=== PATIENT | male | born 1955 | race Caucasian/White ===

== ENCOUNTER 2018-12-01 17:41 | Emergency (ER) | payer BC ==
[~2018-12-01] VITALS: Ht 182.9 cm; Wt 86.2 kg
[~2018-12-01 17:41] MED LIST: B/P MED; CHOLESTROL; HYDR-1231 PO
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
[2018-12-01] MEDS ORDERED: HYDR25TA4 (18:03)
[2018-12-01] MEDS ORDERED: EPLE50TA3 (18:03)
[2018-12-01] MEDS ORDERED: ATOR80TA76 (18:03)
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
[2018-12-01 18:36] LABS: BASOPHILS # (AUTO) 0.1 10^3/uL (0.0-0.1); BASOPHILS % (AUTO) 1 % (0-10); EOSINOPHILS # (AUTO) 0.6 10^3/uL (0.0-0.3); EOSINOPHILS % (AUTO) 5 % (0-10); HEMATOCRIT 48 % (40-54); HEMOGLOBIN 16.4 G/DL (13.3-17.7); LYMPHOCYTES % (AUTO) 37 % (12-44); MEAN CORPUSCULAR HEMOGLOBIN 28 PG (25-34); MEAN CORPUSCULAR HGB CONC 34 G/DL (32-36); MEAN CORPUSCULAR VOLUME 82 FL (80-99); MEAN PLATELET VOLUME 10.6 FL (7.4-10.4); MONOCYTES # (AUTO) 1.4 X 10^3 (0.0-1.0); MONOCYTES % (AUTO) 10 % (0-12); NEUTROPHILS # (AUTO) 6.5 X 10^3 (1.8-7.8); NEUTROPHILS % (AUTO) 48 % (42-75); PLATELET COUNT 382 10^3/uL (130-400); RED CELL DISTRIBUTION WIDTH 14.8 % (10.0-14.5); WHITE BLOOD COUNT 13.6 10^3/uL (4.3-11.0)
--- NOTE | 2018-12-01 18:43 | Diagnostic Imaging Report ---
INDICATION: Chest crackles. FINDINGS: Frontal view of the chest demonstrates the lungs to be clear. The heart and vascularity are normal. There are no pleural effusions. IMPRESSION: Normal portable chest. Dictated by: Dictated on workstation # [id number]
[2018-12-01 18:55] LABS: ALANINE AMINOTRANSFERASE 23 U/L (0-55); ALBUMIN 3.9 GM/DL (3.2-4.5); ALKALINE PHOSPHATASE 118 U/L (40-136); BILIRUBIN,TOTAL 0.7 MG/DL (0.1-1.0); BUN/CREATININE RATIO 11; CALCIUM 10.4 MG/DL (8.5-10.1); CARBON DIOXIDE 26 MMOL/L (21-32); CHLORIDE 97 MMOL/L (98-107); CREATININE SERUM 1.17 MG/DL (0.60-1.30); GFR ESTIMATED > 60; GLUCOSE 186 MG/DL (70-105); POTASSIUM 2.8 MMOL/L (3.6-5.0); SODIUM 137 MMOL/L (135-145); TOTAL PROTEIN 7.3 GM/DL (6.4-8.2)
[2018-12-01 19:17] LABS: FREE T4 (FREE THYROXINE) 0.88 NG/DL (0.70-1.48)
[2018-12-01] MEDS ORDERED: KCL 10 MEQ TAB (MICRO K) PO ONE (19:30)
[2018-12-01] MEDS ORDERED: amLODIPine 5 MG (NORVASC) TAB PO ONE ×2 (19:30→23:00)
[2018-12-01] MEDS ORDERED: NS IV 1000 ML 1,000 ML IV ONE (19:30)
[2018-12-01] MEDS ORDERED: POTASSIUM CL 10MEQ/50ML IVPB 50 ML IV ONE ×2 (19:30)
[2018-12-01 20:32] LABS: BILIRUBIN,URINE NEGATIVE (NEGATIVE); CLARITY,URINE CLEAR; COLOR,URINE YELLOW; GLUCOSE, URINE (UA) NEGATIVE (NEGATIVE); KETONES,URINE NEGATIVE (NEGATIVE); LEUKOCYTE ESTERASE ,URINE NEGATIVE (NEGATIVE); NITRITE,URINE NEGATIVE (NEGATIVE); PH,URINE 6 (5-9); PROTEIN,URINE NEGATIVE (NEGATIVE); UROBILINOGEN,URINE 4 MG/DL (NORMAL)
[2018-12-01 20:43] LABS: BACTERIA,URINE NEGATIVE /HPF; SQUAMOUS EPITHELIAL CELL,UR RARE /HPF; WBC,URINE RARE /HPF
[2018-12-01] MEDS ORDERED: AMLO5TAB9 PO (21:07)
[2018-12-01] MEDS ORDERED: POTA10CA43 PO (21:07)
--- NOTE | 2018-12-01 23:36 | NUR ---
EMS contacted for transport to [place] Rm 221
[2018-12-02 00:19] VITALS: BP 142/121
== END 2018-12-02 00:26 | disposition short-term general hospital (02) ==
LOC: EDUNIT# 17:41 → ER 17:43
DX: I10 Essential (primary) hypertension (principal); E87.6 Hypokalemia; D72.829 Elevated white blood cell count, unspecified; R53.83 Other fatigue; Z82.49 Family history of ischemic heart disease and other diseases of the circulatory system
CPT/HCPCS: 36415; 71045; 80053; 81000; 83735; 83880; 84439; 84443; 85025; 93005; 96365

== ENCOUNTER → 2019-01-10 | Outpatient (CLI) | payer BC ==
[~2019-01-10] MED LIST changes: +AMLO5TAB9 PO; +ATOR80TA76; +EPLE50TA3; +HYDR25TA4; +POTA10CA43 PO
--- NOTE | 2019-01-10 12:53 | Diagnostic Imaging Report ---
PROCEDURE: CT abdomen without contrast. TECHNIQUE: Multiple contiguous axial images were obtained through the abdomen without the use of intravenous contrast. Auto Exposure Controls were utilized during the CT exam to meet ALARA standards for radiation dose reduction. INDICATION: Hypertension. FINDINGS: The lung bases are clear. The heart size is normal. The liver is normal in size without focal lesions. There is no biliary ductal dilatation. There is cholelithiasis. 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 There is a residual splenule. There is a fat-containing left adrenal mass measuring 4.9 cm. There is a 2 mm nonobstructing left renal calculus. The aorta is nonaneurysmal. The bowel gas pattern is nonspecific. There is no free air. There is no ascites. There are no inflammatory changes. 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 Cholelithiasis. No other acute abnormality in the abdomen. Dictated by: Dictated on workstation # [id number]
== END ==
LOC: RAD 11:10
PROVIDERS: ATTEND Internal Medicine
DX: I10 Essential (primary) hypertension (principal); E26.9 Hyperaldosteronism, unspecified
CPT/HCPCS: 74150

== ENCOUNTER 2019-07-01 21:44 | Emergency (ER) | payer MEDICARE ==
[~2019-07-01] VITALS: Ht 180 cm; Wt 84.9 kg
[2019-07-01] MEDS ORDERED: LACTATED RINGERS 1,000 ML IV ONE (21:48)
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
[2019-07-01] MEDS ORDERED: IBUPROFEN 800 MG (MOTRIN) TAB PO ONE (22:00)
[2019-07-01] MEDS ORDERED: ACETAMINOPHEN 500 MG TAB (TYLENOL) PO PRN (22:00)
[2019-07-01] MEDS ORDERED: OSELTAMIVIR 75 MG (TAMIFLU) CAPSULE PO ONE (22:45)
[2019-07-01 22:50] LABS: BASOPHILS % (AUTO) 0 % (0-10); EOSINOPHILS % (AUTO) 0 % (0-10); HEMATOCRIT 54 % (40-54); HEMOGLOBIN 18.3 G/DL (13.3-17.7); LYMPHOCYTES # (AUTO) 1.4 X 10^3 (1.0-4.0); LYMPHOCYTES % (AUTO) 14 % (12-44); MEAN CORPUSCULAR HEMOGLOBIN 29 PG (25-34); MEAN CORPUSCULAR HGB CONC 34 G/DL (32-36); MEAN CORPUSCULAR VOLUME 85 FL (80-99); MONOCYTES % (AUTO) 20 % (0-12); NEUTROPHILS # (AUTO) 6.7 X 10^3 (1.8-7.8); NEUTROPHILS % (AUTO) 66 % (42-75); PLATELET COUNT 284 10^3/uL (130-400); RED CELL DISTRIBUTION WIDTH 15.6 % (10.0-14.5); WHITE BLOOD COUNT 10.2 10^3/uL (4.3-11.0)
--- NOTE | 2019-07-01 23:02 | NUR ---
Report received from GEOVANNA Corona to assume care.
[2019-07-01 23:04] LABS: ALANINE AMINOTRANSFERASE 44 U/L (0-55); ALKALINE PHOSPHATASE 139 U/L (40-136); BILIRUBIN,TOTAL 0.5 MG/DL (0.1-1.0); BUN/CREATININE RATIO 16; CALCIUM 10.1 MG/DL (8.5-10.1); CARBON DIOXIDE 18 MMOL/L (21-32); CHLORIDE 101 MMOL/L (98-107); CREATININE SERUM 1.24 MG/DL (0.60-1.30); GFR ESTIMATED 59; GLUCOSE 98 MG/DL (70-105); POTASSIUM 4.2 MMOL/L (3.6-5.0); SODIUM 132 MMOL/L (135-145); TOTAL PROTEIN 8.3 GM/DL (6.4-8.2)
[2019-07-01 23:06] LABS: EOSINOPHILS % (MANUAL) 1 %; LYMPHOCYTES % (MANUAL) 11 %; MONOCYTES % (MANUAL) 10 %; NEUTROPHILS % (MANUAL) 78 %; RBC MORPH NORMAL
[2019-07-01 23:39] LABS: INR 1.1 (0.8-1.4)
[2019-07-02] MEDS ORDERED: D5 1/2 NS 1000 ML IV SOLUTION 1,000 ML IV ONE (00:45)
[2019-07-02 00:50] LABS: BILIRUBIN,URINE NEGATIVE (NEGATIVE); CLARITY,URINE CLEAR; COLOR,URINE YELLOW; GLUCOSE, URINE (UA) NEGATIVE (NEGATIVE); KETONES,URINE TRACE (NEGATIVE); LEUKOCYTE ESTERASE ,URINE NEGATIVE (NEGATIVE); NITRITE,URINE NEGATIVE (NEGATIVE); PH,URINE 5.5 (5-9); PROTEIN,URINE TRACE (NEGATIVE)
[2019-07-02 01:08] LABS: BACTERIA,URINE TRACE /HPF; SQUAMOUS EPITHELIAL CELL,UR RARE /HPF
[2019-07-02 01:52] VITALS: BP 159/99
--- NOTE | 2019-07-02 06:08 | Diagnostic Imaging Report ---
INDICATION: Cough and congestion. Comparison with 12/01/2018. FINDINGS: Portable chest shows the lungs to be well-aerated and clear. No air trapping. No infiltrates. Heart is not enlarged. No pulmonary edema or hilar adenopathy. No pneumothorax or pleural effusion. No bony abnormalities. IMPRESSION: Normal portable chest. Dictated by: Dictated on workstation # [id number]
== END 2019-07-02 01:55 | disposition home or self-care (01) ==
LOC: ER 21:44 → EDUNIT# 21:44 → ER 07-02 01:55
DX: J10.1 Influenza due to other identified influenza virus with other respiratory manifestations (principal); E86.0 Dehydration; I10 Essential (primary) hypertension; Z91.14 Patient's other noncompliance with medication regimen
CPT/HCPCS: 36415; 71045; 80053; 81000; 83605; 84484; 85007; 85027; 85610; 85730; 87040; 87088; 87804; 93005; 93041

== ENCOUNTER → 2021-01-03 | Outpatient (CLI) | payer MEDICARE ==
[~2021-01-03] MED LIST changes: +AMLO-250 PO; -AMLO5TAB9 PO
--- NOTE | 2021-01-03 14:23 | Diagnostic Imaging Report ---
INDICATION: Nephrolithiasis. EXAMINATION: KUB at 2:06 PM. FINDINGS: There appear to be at least 4 calculi in the gallbladder. There are no calculi seen in either kidney. The bowel gas pattern is normal. There is splenic artery calcification. IMPRESSION: Cholecystolithiasis. Dictated by: Dictated on workstation # [id number]
== END ==
LOC: RAD 13:40
PROVIDERS: ATTEND Urology
DX: N20.2 Calculus of kidney with calculus of ureter (principal); K80.20 Calculus of gallbladder without cholecystitis without obstruction
CPT/HCPCS: 74018

== ENCOUNTER 2022-10-19 19:19 | Observation (INO) | payer MEDICARE ==
[~2022-10-19] VITALS: Ht 180 cm; Wt 79.9 kg
[~2022-10-19 19:19] MED LIST changes: -POTA10CA43 PO; +POTA10CA44 PO
[2022-10-19 19:55] LABS: BASOPHILS # (AUTO) 0.1 10^3/uL (0.0-0.1); BASOPHILS % (AUTO) 1 % (0-10); EOSINOPHILS # (AUTO) 0.2 10^3/uL (0.0-0.3); EOSINOPHILS % (AUTO) 1 % (0-10); HEMATOCRIT 51 % (40-54); HEMOGLOBIN 17.2 g/dL (13.3-17.7); LYMPHOCYTES # (AUTO) 1.4 10^3/uL (1.0-4.0); LYMPHOCYTES % (AUTO) 7 % (12-44); MEAN CORPUSCULAR HEMOGLOBIN 28 pg (25-34); MEAN CORPUSCULAR HGB CONC 34 g/dL (32-36); MEAN CORPUSCULAR VOLUME 83 fL (80-99); MEAN PLATELET VOLUME 10.1 fL (9.0-12.2); MONOCYTES % (AUTO) 5 % (0-12); NEUTROPHILS % (AUTO) 86 % (42-75); PLATELET COUNT 398 10^3/uL (130-400); WHITE BLOOD COUNT 19.7 10^3/uL (4.3-11.0)
[2022-10-19 20:01] LABS: BILIRUBIN,URINE NEGATIVE (NEGATIVE); CLARITY,URINE CLEAR; COLOR,URINE YELLOW; GLUCOSE, URINE (UA) 3+ (NEGATIVE); KETONES,URINE 1+ (NEGATIVE); LEUKOCYTE ESTERASE ,URINE NEGATIVE (NEGATIVE); NITRITE,URINE NEGATIVE (NEGATIVE); PROTEIN,URINE TRACE (NEGATIVE)
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
[2022-10-19 20:15] LABS: EOSINOPHILS % (MANUAL) 1 %; LYMPHOCYTES % (MANUAL) 8 %; MONOCYTES % (MANUAL) 3 %; NEUTROPHILS % (MANUAL) 84 %; PLATELET ESTIMATE OCC LARGE PLT; POIKILOCYTOSIS SLIGHT; REACTIVE LYMPHOCYTES 4 %
[2022-10-19] MEDS ORDERED: NS IV 1000 ML 1,000 ML IV SCH ×2 (20:15→21:00)
[2022-10-19 20:17] LABS: ALBUMIN 4.3 GM/DL (3.2-4.5); ANISOCYTOSIS MODERATE; POTASSIUM 3.6 MMOL/L (3.6-5.0)
[2022-10-19 20:18] LABS: CALCIUM 10.3 MG/DL (8.5-10.1)
[2022-10-19 20:21] LABS: BILIRUBIN,TOTAL 1.5 MG/DL (0.1-1.0)
[2022-10-19 20:23] LABS: CREATININE SERUM 1.07 MG/DL (0.60-1.30)
[2022-10-19 20:23] LABS: AMORPHOUS SEDIMENT,UR RARE AMOR URATES /LPF; BACTERIA,URINE NEGATIVE /HPF; SQUAMOUS EPITHELIAL CELL,UR RARE /HPF; WBC,URINE 0-2 /HPF
[2022-10-19] MEDS ORDERED: NS 100 ML (IVPB) BAG IV ONE (20:45)
[2022-10-19] MEDS ORDERED: HOLD METFORMIN - RECEIVED CONTRAST 20 ML VIAL IV SCH (20:45)
[2022-10-19] MEDS ORDERED: IOHEXOL 350 MG/ML 100 ML (OMNIPAQUE 350) VIAL IV ONE (20:45)
--- NOTE | 2022-10-19 21:30 | Diagnostic Imaging Report ---
PROCEDURE: CT abdomen and pelvis with contrast, rule out appendicitis. TECHNIQUE: Multiple contiguous axial images were obtained through the abdomen and pelvis after the administration of intravenous contrast. All CT scans use one or more of the following dose optimizing techniques: automated exposure control, MA and/or KvP adjustment based on patient size and exam type or iterative reconstruction. INDICATION: Right lower quadrant abdominal pain. Fever. Weakness. COMPARISON: 01/10/2019. FINDINGS: Included portions of lung bases show mild dependent atelectasis CT ABDOMEN: Normal appendix is identified. There is however focal segment of distal ileum within the right lower abdominal quadrant that shows thickened hyperenhancement to the wall. There is also moderate stranding of the surrounding mesentery. This does extend towards the sigmoid colon. Wall the sigmoid colon appears slightly thickened as well, although this portion of the sigmoid colon is nondilated. Multiple diverticula are also identified involving this portion of the sigmoid colon. Remainder of the colon is unremarkable on CT. Small bowel is nondilated. There is a small amount of free fluid within the lower pelvis and right lower abdominal quadrant. There is no definite free air. There is no loculated air-fluid collection to suggest abscess. Mixed fat and soft tissue density mass of the left adrenal gland is identified and measures 5.8 x 3.5 cm. This is in comparison to 5.3 x 3.4 cm previously and is suspicious for myolipoma. Similar smaller appearing lesion is also seen more inferiorly involving the lateral genu and is also suspicious for myolipoma. There is also abnormal nodular more dense appearance of the right adrenal gland. This is nonspecific, but stable. Multiple gallstones are present. There is no gallbladder wall thickening or pericholecystic free fluid. The liver, kidneys and pancreas have a normal CT appearance. Multiple splenules are noted within the left upper abdominal quadrant and may be on the basis of previous trauma and splenectomy. A few small retroperitoneal lymph nodes are noted. No abnormal mesenteric adenopathy is seen. Osseous structures show no acute abnormality. CT PELVIS: Urinary bladder is unopacified. No calculi are seen within urinary bladder. A few prominent perisigmoidal lymph nodes are also noted mammography. There is no loculated fluid collection or free air. Osseous structures show no acute abnormality. IMPRESSION: 1. Prominent abnormal inflammatory versus infectious process in the right lower abdominal quadrant. This appears to be epicentered around a loop of distal ileum and is concerning for inflammatory bowel disease, such as Crohn's disease. Note is made that this does extend towards multiple diverticula of the sigmoid colon with associated colonic wall thickening. This however may be reactive. Sigmoidal diverticulitis as the primary cause of these findings is felt to be less likely, but is not entirely excluded. Correlation with colonoscopy is advised, as sigmoidal mass may present in a similar manner. 2. Small amount of free fluid within the pelvis, but no loculated air-fluid collection or free air. 3. Multiple adrenal lesions, as described above. 4. Cholelithiasis. Dictated by: Dictated on workstation # [id number]
[2022-10-19] MEDS ORDERED: metroNIDAZOLE 500MG/100ML IVPB 100 ML IV ONE (22:00)
[2022-10-19] MEDS ORDERED: CIPROFLOXACIN IV 400MG/200ML 200 ML IV ONE (22:00)
[2022-10-19] MEDS ORDERED: predniSONE 20 MG TAB PO ONE (22:00)
[2022-10-19] MEDS ORDERED: PIPERACILLIN SODIUM/TAZOBACTAM 4.5 GM in NS (IVPB) 100 ML IV ONE (22:15)
[2022-10-19] MEDS ORDERED: morphine INJ 4 MG/ML 1 ML (VIAL/SYRINGE) IV PRN (23:15)
[2022-10-19] MEDS ORDERED: ACETAMINOPHEN 500 MG TAB (TYLENOL) PO PRN (23:15)
[2022-10-19] MEDS ORDERED: ONDANSETRON 4 MG/2 ML (SDV) Z0FRAN IV PRN (23:15)
[2022-10-19] MEDS: NS IV 1000 ML 1,000 ML IV SCH (23:26)
[2022-10-20] VITALS: BP 147/80
[2022-10-20] MEDS ORDERED: ATOR40TA70 PO ×2 (00:02→08:42)
[2022-10-20] MEDS ORDERED: CARV3.122 PO ×2 (00:03→08:42)
[2022-10-20] MEDS ORDERED: CLOP-31 PO (00:03)
[2022-10-20] MEDS ORDERED: EZET10TA49 PO ×2 (00:04→08:42)
[2022-10-20] MEDS ORDERED: DAPA10TA PO ×2 (00:07→08:42)
[2022-10-20 03:25] VITALS: BP 118/77
[2022-10-20] MEDS ORDERED: PIPERACILLIN SODIUM/TAZOBACTAM 4.5 GM in NS (IVPB) 100 ML IV SCH (04:00)
[2022-10-20] MEDS ORDERED: CALCIUM CARBONATE 500 MG (TUMS) TAB.CHEW PO PRN (04:15)
[2022-10-20] MEDS ORDERED: HYDROcodone/APAP 5 MG/325 MG (LORTAB) TAB PO PRN (04:15)
[2022-10-20] MEDS ORDERED: diphenhydrAMINE 25 MG TAB (BENADRYL) PO PRN (04:15)
[2022-10-20] MEDS ORDERED: MELATONIN 3 MG TABLET PO PRN (04:15)
[2022-10-20] MEDS ORDERED: DOCUSATE SODIUM 100 MG (COLACE) CAP PO PRN (04:15)
[2022-10-20] MEDS ORDERED: ALPRAZolam 0.25 MG (XANAX) TAB PO PRN (04:15)
[2022-10-20 05:55] LABS: BASOPHILS % (AUTO) 0 % (0-10); EOSINOPHILS % (AUTO) 0 % (0-10); HEMATOCRIT 46 % (40-54); HEMOGLOBIN 15.3 g/dL (13.3-17.7); LYMPHOCYTES # (AUTO) 0.9 10^3/uL (1.0-4.0); LYMPHOCYTES % (AUTO) 7 % (12-44); MEAN CORPUSCULAR HEMOGLOBIN 28 pg (25-34); MEAN CORPUSCULAR HGB CONC 33 g/dL (32-36); MEAN CORPUSCULAR VOLUME 84 fL (80-99); MEAN PLATELET VOLUME 10.5 fL (9.0-12.2); MONOCYTES # (AUTO) 0.3 10^3/uL (0.0-1.0); MONOCYTES % (AUTO) 2 % (0-12); NEUTROPHILS # (AUTO) 12.9 10^3/uL (1.8-7.8); NEUTROPHILS % (AUTO) 91 % (42-75); PLATELET COUNT 356 10^3/uL (130-400); WHITE BLOOD COUNT 14.3 10^3/uL (4.3-11.0)
[2022-10-20 05:58] LABS: POTASSIUM 3.8 MMOL/L (3.6-5.0)
[2022-10-20 06:00] LABS: CALCIUM 9.4 MG/DL (8.5-10.1)
[2022-10-20 06:04] LABS: CREATININE SERUM 1.01 MG/DL (0.60-1.30)
[2022-10-20] MEDS ORDERED: predniSONE 20 MG TAB PO SCH (07:00)
[2022-10-20 08:14] VITALS: BP 124/75
[2022-10-20] MEDS ORDERED: AMLO-250 PO (08:42)
[2022-10-20] MEDS ORDERED: EPLE50TA3 PO (08:43)
[2022-10-20] MEDS ORDERED: LOSA50TA63 PO ×2 (08:43)
[2022-10-20] MEDS ORDERED: CLOP75TA28 PO (08:43)
[2022-10-20] MEDS ORDERED: FAMOTIDINE 20 MG (PEPCID) TABLET PO SCH (09:00)
[2022-10-20] MEDS ORDERED: polyethylene glycoL POWDER 17 GM (MIRALAX) PACK PO SCH (09:00)
[2022-10-20] MEDS ORDERED: ENOXAPARIN 40 MG/0.4 ML (LOVENOX) SYR SC SCH (09:00)
[2022-10-20] MEDS ORDERED: SENNA W/DOCUSATE (SENOKOT S) TABLET PO SCH (09:00)
[2022-10-20] MEDS: NS IV 1000 ML 1,000 ML IV SCH (10:12)
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
[2022-10-20] MEDS ORDERED: METR-145 PO ×2 (12:20)
[2022-10-20] MEDS ORDERED: CIPR500T5 PO ×2 (12:20)
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
[2022-10-20 13:26] VITALS: BP 124/75
== END 2022-10-20 12:45 | disposition home or self-care (01) ==
LOC: EDUNIT# 19:19 → ER 19:20 → UNDOADMIN 22:10 → 4TH 22:10 → UNDODISIN 10-20 12:45
PROVIDERS: ADMIT Internal Medicine; ATTEND Internal Medicine
DX: K57.32 Diverticulitis of large intestine without perforation or abscess without bleeding (principal); K50.00 Crohn's disease of small intestine without complications; K52.9 Noninfective gastroenteritis and colitis, unspecified; K80.10 Calculus of gallbladder with chronic cholecystitis without obstruction; R65.10 Systemic inflammatory response syndrome (SIRS) of non-infectious origin without acute organ dysfunction
CPT/HCPCS: 74177; 80048; 80053; 81000; 83605; 85007; 85025; 85027; 86141; 87040; 96361 ×3; 96365; 96372; 96376; 99284; G0378; 36415

== ENCOUNTER → 2022-10-30 | Outpatient (CLI) | payer MEDICARE ==
[~2022-10-30] MED LIST changes: +ATOR40TA70 PO; +CARV3.122 PO; +CIPR500T5 PO; +CLOP-31 PO; +CLOP75TA28 PO; +DAPA10TA PO; +EPLE50TA3 PO; +EZET10TA49 PO; +LOSA50TA63 PO; +METR-145 PO; +REGADENOSON 0.4 MG/5 ML SYR (LEXISCAN) IV ONE
[2022-10-30] MEDS: CATHETER FLUSH 10 ML SYR IVP PRN ×2 (07:28→09:03)
[2022-10-30 08:58] VITALS: BP 152/98
--- NOTE | 2022-10-30 11:32 | Cardiology Stress Test Report ---
Stress Test Report Date of Procedure/Referring: Date of Procedure: Oct 30, 2022 PCP Vito Kramer DO Admitting Physician Admitting Physician: Attending Physician: Tati Lawson MD Indications: CP Baseline Heart Rate: 61 Baseline Blood Pressure: Blood Pressure Systolic: 152 Blood Pressure Diastolic: 98 Baseline Vitals Vital Signs Date Time Temp Pulse Resp B/P (MAP) Pulse Ox O2 Delivery O2 Flow Rate FiO2 10/30/22 08:58 20 64 152/98 (116) 96 Room Air Baseline EKG: Baseline EKG: NSR Summary After explaining the procedure to the patient, he signed a consent and then brought to the stress nuclear laboratory. Patient received 0.4 mg Lexiscan for stress test, ECG, heart rate and blood pressure were monitored continuously. Resting and stress dose of radio tracer were injected, imaging was acquired and reviewed in short axis, horizontal long axis and vertical long axis views. TID: 0.99 SSS: 6 SDS: 4 EF: 31 Patient tolerated Lexiscan well Intermittent left bundle branch block induced by Lexiscan injection Reversible ischemia involving the mid to apical inferior wall inferolateral wall and anterior lateral wall fixed defect at the apex Dilated left ventricle with diffuse left ventricular hypokinesia ejection fraction 31% Copy Copies To 1: VITO KRAMER BASHAR J MD Oct 30, 2022 11:32
== END ==
LOC: CARD 06:56
PROVIDERS: ATTEND Internal Medicine Cardiovascular Disease
DX: I25.10 Atherosclerotic heart disease of native coronary artery without angina pectoris (principal); I10 Essential (primary) hypertension
CPT/HCPCS: 78452; 93017; A9502

== ENCOUNTER 2022-11-08 13:00 | Day surgery (SDC) | payer MEDICARE ==
[2022-11-08] VITALS (9 sets, daily range): BP systolic 120–163; BP diastolic 79–99
[~2022-11-08] VITALS: Ht 180.3 cm; Wt 78.5 kg
--- NOTE | 2022-11-08 11:16 | Diagnostic Imaging Report ---
INDICATION: Pre-heart catheterization evaluation, abnormal stress, cad,chf,cva,htn,hlp. TECHNIQUE: Single view chest 11:08 AM. CORRELATION STUDY: 07/01/2019 FINDINGS: Heart size and mediastinum are prominent but generally stable. Vasculature within normal limits. The lungs are clear with no consolidating infiltrate. There is no significant effusion or pneumothorax. Old healed left posterior lateral rib fracture deformities. IMPRESSION: 1. Generally stable chest demonstrates no acute abnormality. Dictated by: Dictated on workstation # [id number]
[2022-11-08 11:37] LABS: BILIRUBIN,URINE NEGATIVE (NEGATIVE); CLARITY,URINE CLEAR; COLOR,URINE YELLOW; GLUCOSE, URINE (UA) 3+ (NEGATIVE); KETONES,URINE NEGATIVE (NEGATIVE); LEUKOCYTE ESTERASE ,URINE NEGATIVE (NEGATIVE); NITRITE,URINE NEGATIVE (NEGATIVE); PH,URINE 5.5 (5-9); PROTEIN,URINE NEGATIVE (NEGATIVE)
[2022-11-08 11:37] LABS: HEMATOCRIT 49 % (40-54); MEAN CORPUSCULAR HEMOGLOBIN 28 pg (25-34); MEAN CORPUSCULAR HGB CONC 33 g/dL (32-36); MEAN CORPUSCULAR VOLUME 85 fL (80-99); MEAN PLATELET VOLUME 10.2 fL (9.0-12.2); PLATELET COUNT 385 10^3/uL (130-400); WHITE BLOOD COUNT 10.3 10^3/uL (4.3-11.0)
[2022-11-08 11:43] LABS: BACTERIA,URINE NEGATIVE /HPF
--- NOTE | 2022-11-08 11:52 | Cardiac Procedure Note-CS/ASA ---
Pre-Procedure Note Pre-Op Procedure Note Date of Available H&P: Nov 02, 2022 Date H&P Reviewed: Nov 08, 2022 Time H&P Reviewed: 11:52 History & Physical: H&P Reviewed, Patient Examed, No changes noted Pre-Operative Diagnosis: CAD Moderate Sedation PreProcedure Time 11:52 ASA Score 3 Airway Lungs Heart ASA score ASA 1: a normal healthy patient ASA 2: a patient with a mild systemic disease (mid diabetes, controlled hypertension, obesity ASA 3: a patient with a severe systemic disease that limits activity (angina, COPD, prior Myocardial infarction) ASA 4: a patient with an incapacitating disease that is a constant threat to life (CHF, renal failure) ASA 5: a moribund patient not expected to survive 24 hrs. (ruptured aneurysm) ASA 6: a declared brain- patient whose organs are being harvested. For emergent operations, add the letter E after the classification Mallampati Classification Grade 3 Sedation Plan Analgesia, Amnesia, Plan communicated to team members, Discussed options with patient/fam, Discussed risks with patient/fam The patient is an appropriate candidate to undergo the planned procedure, sedation, and anesthesia. The patient immediately re-assessed prior to indication. DORY JOHN MD Nov 08, 2022 11:52
[2022-11-08 11:53] LABS: INR 1.1 (0.8-1.4); PROTHROMBIN TIME PATIENT 14.2 SEC (12.2-14.7)
[2022-11-08 11:59] LABS: ALBUMIN 4.1 GM/DL (3.2-4.5); BILIRUBIN,TOTAL 1.3 MG/DL (0.1-1.0); CALCIUM 10.3 MG/DL (8.5-10.1); CREATININE SERUM 1.01 MG/DL (0.60-1.30); POTASSIUM 4.1 MMOL/L (3.6-5.0); TOTAL PROTEIN 7.5 GM/DL (6.4-8.2)
--- NOTE | 2022-11-08 12:48 | Discharge Inst-Post CATH ---
Discharge Inst-CATH/EP Problems Reviewed?: Yes Post Cardiac Cath/EP D/C Inst Follow Up/Plan Appointment with Dr. Lawson's office in 2 to 4 weeks <b>CARDIAC CATH/EP PROCEDURE DISCHARGE INSTRUCTIONS</b> ACTIVITY * Go Home directly and rest. * Limit activity of the leg (or wrist if it was used) for 7 days including aer obics, swimming, jogging, bicycling, etc. * Restrict stair-climbing for 7 days if possible, if not, climb up with your non-cath leg, then bring together on the same step. * Avoid lifting, pushing, pulling or excessive movement of the affected extremi ty for 7 days. * Customary sexual activity may be resumed after 2 days-use caution not to use a position that strains or causes pain to the affected extremity. * No driving for 24 hours. * NO SMOKING. * Avoid straining for bowel movements for 7 days. * Gentle walking on level ground is allowed. * Returning to work will depend on the type of procedure and the results. Your doctor will discuss this with you. CALL YOUR DOCTOR FOR ANY OF THE FOLLOWING: *If bleeding from the puncture site occurs- Apply gentle pressure to site with clean cloth and call your doctor or EMS. * If a knot or lump forms under the skin, increases in size, or causes pain. * If bruising appears to be worsening or moving further down your leg instead of disappearing. * Temperature above 101 F. CARE OF YOUR GROIN INCISION; * Bruising or purple discoloration of the skin near the puncture site is common. * You may shower only, no bathtub bathing for 5 days. Be careful to avoid slipping as your leg may feel stiff. * If a closure device was used on your femoral artery, please see the attached guide regarding care of the device and your leg. * Leave dressing on FOR 24 hours. CARE OF YOUR WRIST INCISION; * Bruising or purple discoloration of the skin near the puncture site is common. * You may shower. * DO NOT submerge wrist. * Leave dressing on FOR 24 hours. DORY LAWSON MD Nov 08, 2022 12:48
--- NOTE | 2022-11-08 12:52 | Cardiac Cath Report ---
Cardiac Cath Report Physician (s)/Soda Room Operator (s) Physician DORY JOHN MD Pre-Procedure Diagnosis Pre-Procedure Diagnosis: CAD Post-Procedure Note Procedure Start Date: Nov 08, 2022 Name of Procedure: Left heart catheterization Aortic arch angiogram Findings/Procedure Note PROCEDURE NOTE: 67-year-old gentleman with a history of coronary artery disease, has been having chest pain, had an abnormal stress test. Cardiac catheterization was advised. After explaining the procedure to the patient, all pros and cons were explained, all questions were answered. The patient signed the consent and then he was placed in the cardiac catheterization laboratory. Groin was prepped in SL fashion local anesthesia was used. Sheath placed in the right radial artery, [place] catheter was advanced to the left ventricular cavity, pressure was me asured, pullback LV to aorta was done, engage the right and left coronary system, multiple views were obtained. Then the catheter was pulled to the aortic arch and aortic arch angiogram was done. At the end of the procedure the sheath was removed. Vascular band was used FINDINGS: Hemodynamics No significant gradient across the aortic valve Left ventricular end-diastolic pressure 23. ANATOMY: Left Main is calcified with no obstructive disease Left Anterior Descending has diffuse ectasia with multiple area of aneurysmal dilatation distally there is an area of 60 to 70% stenosis far distal surrounded by diffuse ectasia the first diagonal artery has moderate size aneurysm followed by 80% stenosis, not amendable to intervention Left Circumflex is tortuous artery with diffuse ectasia. Nonobstructive disease Right Coronary Artery is dominant artery, tortuous artery with diffuse ectasia moderate disease nonobstructive disease LV Gram was not done, pressure was measured Aorta evaluation done with aortic arch angiogram showing ectasia in the ascending aorta and aortic arch, prominent. Normal origin of the brachiocephalic artery, left carotid and left subclavian arteries. CONCLUSION: Diffuse coronary ectasia with heavy calcification in the coronary system. The distal LAD has an area of 60 to 70% stenosis, far distal around the apex area. Not amendable to intervention due to multiple aneurysm around that area. The first diagonal artery has an aneurysmal dilatation moderate in size followed by 80% stenosis, not amendable to intervention otherwise diffuse ectasia in the coronary system. 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 With tortuous brachiocephalic artery, recommend monitoring closely with CT angiogram DISCUSSION AND RECOMMENDATION: Continue to maximize medical therapy and continue to have tight control on the blood pressure and cholesterol Anesthesia Type: Conscious Sedation Estimated blood loss (mL): 10 ml Contrast Amount: 47 ml Total Radiation Dose: 403 mGy Post-Procedure Diagnosis Post-operative diagnosis: Chest pain Coronary artery disease Hypertension Hyperlipidemia DORY JOHN MD Nov 08, 2022 12:52
[~2022-11-08 13:00] MED LIST changes: +HEParin (CATH LAB) 2,000 ML IV ONE; +HEParin 1000 UNIT/ML (10ML VIAL) FOR BOLUS ONE; +LIDOCAINE 1% INJ 20 ML VIAL ONE; +MIDAZOLAM 5 MG/5 ML (VERSED) VIAL ONE; +NITRO DRIP 25000 MCG/D5W 250 ML IV ONE; +NS IV 1000 ML 1,000 ML IV SCH; +NS IV 1000 ML 1,000 ML ONE; -REGADENOSON 0.4 MG/5 ML SYR (LEXISCAN) IV ONE; +VERAPAMIL 5 MG/2 ML (CALAN) VIAL IV ONE; +fentaNYL INJ 100 MCG/2 ML AMP ONE
== END 2022-11-08 15:30 | disposition home or self-care (01) ==
LOC: CATH 13:00 → SDC 13:04 → CATH 15:30
PROVIDERS: ATTEND Internal Medicine Cardiovascular Disease
DX: I25.10 Atherosclerotic heart disease of native coronary artery without angina pectoris (principal); I11.0 Hypertensive heart disease with heart failure; E78.2 Mixed hyperlipidemia; I50.9 Heart failure, unspecified; I42.9 Cardiomyopathy, unspecified; I65.23 Occlusion and stenosis of bilateral carotid arteries; K80.20 Calculus of gallbladder without cholecystitis without obstruction; E27.8 Other specified disorders of adrenal gland; Z86.73 Personal history of transient ischemic attack (TIA), and cerebral infarction without residual deficits; Z79.01 Long term (current) use of anticoagulants; Z79.899 Other long term (current) drug therapy
CPT/HCPCS: 36221; 71045; 80053; 81000; 85027; 85610; 85730; 87081; 93005; 93458; C1760; C1894; 36415